=== PATIENT | female | born 1985 | race Caucasian/White ===

== ENCOUNTER 2018-09-15 21:09 | Emergency (ER) | payer MEDICAID, OTHER ==
[~2018-09-15] VITALS: Ht 152.4 cm; Wt 86.9 kg
[2018-09-15 21:23] VITALS: Ht 152.4 cm; Wt 86.9 kg
[2018-09-16] MEDS ORDERED: CIPR7.5D LEFT EAR (02:13)
[2018-09-16] MEDS ORDERED: IBUP-1542 PO (02:13)
--- NOTE | 2018-09-16 02:37 | ERD ---
ER Documentation Chief Complaint Chief Complaint left ear pain with discharge; had same problem last Jun HPI 32-year-old female with no past medical or surgical history who presents with 1 day complaint of left ear pain. Has noticed intermittent yellow discharge from left ear. Has had worsening pain to the outer left ear. Had similar episode and treated for otitis externa in June of this year. She otherwise denies fever, chills. Otherwise is without complaint. ROS All systems reviewed and are negative except as per history of present illness. Medications Home Meds Active Scripts Ibuprofen* (Motrin*) 600 Mg Tab, 600 MG PO Q6, #30 TAB Prov:JENNIFER GERMAN PA-C 09/16/18 Ciprofloxacin Hcl/Dexameth (Ciprodex Otic Suspension) 7.5 Ml Drops.susp, 4 DROP LEFT EAR BID for 7 Days, EA Prov:JENNIFER GERMAN PA-C 09/16/18 PMhx/Soc Medical and Surgical Hx: pt denies Medical Hx, pt denies Surgical Hx Hx Alcohol Use: No Hx Substance Use: No Hx Tobacco Use: No Smoking Status: Never smoker Physical Exam Vitals Vital Signs Date Temp Pulse Resp B/P (MAP) Pulse Ox O2 O2 Flow FiO2 Time Delivery Rate 09/15/18 99.4 86 18 167/99 100 21:23 (121) Physical Exam I have reviewed the triage vital signs. Const: Well nourished, well developed, appears stated age Eyes: PERRL, no conjunctival injection, L ear with pain at pull of tragus, tymp anic membrane appears intact, no discharge or exudates from L ear canal, tender periauricularly, R ear unremarkable HENT: NCAT, Neck supple without meningismus CV: RRR, Warm, well-perfused extremities RESP: CTAB, Unlabored respiratory effort GI: soft, non-tender, non-distended, no masses MSK: No gross deformities appreciated Skin: Warm, dry. No rashes Psych: Appropriate mood and affect. Procedures/MDM 32-year-old female sitting with left ear pain. Symptoms and physical findings most consistent with otitis externa. She does not have any red flag symptoms does not have risk factors for malignant otitis externa. She has not no fever and no evidence of systemic spread of infection. Patient was advised to take the following topical antibiotic ciprodex. At this time an oral antibiotic is not warranted. Working impression: Acute Otitis Externa. Systemic Antibiotics were not prescribed due to the lack following medical reasons: coexisting diabetes, immune deficiency, concurrent Otitis Media, Mastoiditis, etc. Please follow up with your primary care physician as needed. If you do not have a primary doctor, you can call your insurance company to find one. If you do not have insurance, you can go to the finance/registration department for more assistance. Departure Diagnosis: Primary Impression: Otitis externa Condition: Stable Patient Instructions: Otitis Externa (Child), External Ear Infection (Adult) Referrals: [facility] YOU HAVE RECEIVED A MEDICAL SCREENING EXAM AND THE RESULTS INDICATE THAT YOU DO NOT HAVE A CONDITION THAT REQUIRES URGENT TREATMENT IN THE EMERGENCY DEPARTMENT. FURTHER EVALUATION AND TREATMENT OF YOUR CONDITION CAN WAIT UNTIL YOU ARE SEEN IN YOUR DOCTORS OFFICE WITHIN THE NEXT 1-2 DAYS. IT IS YOUR RESPONSIBILITY TO MAKE AN APPOINTMENT FOR FOLOW-UP CARE. IF YOU HAVE A PRIMARY DOCTOR --you should call your primary doctor and schedule an appointment IF YOU DO NOT HAVE A PRIMARY DOCTOR YOU CAN CALL OUR PHYSICIAN REFERRAL HOTLINE AT IF YOU CAN NOT AFFORD TO SEE A PHYSICIAN YOU CAN CHOSE FROM THE FOLLOWING [facility] [id number] [facility]. [facility] [address] [facility] [facility] [address] [facility] [facility] [address] [facility]. [facility] [address] [facility]. [facility]. [address] Additional Instructions: Call your primary care doctor TOMORROW for an appointment during the next 2-3 days.See the doctor sooner or return here if your condition worsens before your appointment time. JENNIFER GERMAN PA-C Sep 16, 2018 02:37
[2018-09-16] MEDS ORDERED: KETOROLAC 30 MG INJ IM STA (02:56)
[2018-09-16 03:43] VITALS: BP 144/77; PULSE 79; RESP 16
== END 2018-09-16 04:05 | disposition home or self-care (01) ==
LOC: FTE 21:09
DX: H60.92 Unspecified otitis externa, left ear (principal)
CPT/HCPCS: 81025; 96372; J1885; Z7502